=== PATIENT | male | born 1955 | race Caucasian/White ===

== ENCOUNTER → 2019-09-20 | Outpatient (CLI) | payer OTHER ==
[~2019-09-20] MED LIST: ASPIRIN325 PO; ENDOCET 7.5-321 EACH PO; LEVOTHYROXIN0.025 M1 PG; LEVOTHYROXIN0.125 M2 PO; LISINOPRIL-HCT1 EAC1 PO; NORCO 5-325 TA1 EACH PO; NORCO 7.5-3251 EACH PO; SYNTHROID125 MCG PO; ZESTORETIC 20-1 EACH PO; ZESTRIL20 MG PO
== END ==
LOC: CAT 10:04
DX: Z13.6 Encounter for screening for cardiovascular disorders (principal); I25.10 Atherosclerotic heart disease of native coronary artery without angina pectoris; E78.00 Pure hypercholesterolemia, unspecified

== ENCOUNTER 2020-06-08 18:08 | Emergency (ER) | payer OTHER ==
[~2020-06-08] VITALS: Ht 188 cm; Wt 120.2 kg
[2020-06-08 19:20] LABS: ABSOLUTE NEUTROPHILS 4.5 thou/uL (1.4-8.2); HEMATOCRIT 44.6 % (42.0-52.0); HEMOGLOBIN 15.2 gm/dL (14.0-18.0); LYMPHOCYTES 29.5 % (24.0-44.0); MCH 30.9 pg (26.0-34.0); MONOCYTES 8.5 % (1.0-8.0); PLATELET COUNT 255 thou/uL (150-400); RDW 13.2 % (10.5-14.5); WBC 7.7 thou/uL (4.0-11.0)
[2020-06-08 19:30] LABS: ANION GAP 11 mmol/L (7-16); BUN 19 mg/dL (7-18); CALCIUM 8.9 mg/dL (8.5-10.1); CHLORIDE 102 mmol/L (98-107); CO2 27 mmol/L (21-32); CREATININE 1.6 mg/dL (0.7-1.3); GLUCOSE 100 mg/dL (74-106); POTASSIUM 3.9 mmol/L (3.5-5.1); SODIUM 140 mmol/L (136-145)
[2020-06-08] MEDS ORDERED: LISINOPRIL-HCT1 EAC1 PO ×2 (19:36→20:49)
[2020-06-08] MEDS ORDERED: LEVOTHYROXINE125 MCG PO (19:36)
[2020-06-08 19:40] LABS: ALBUMIN 4.1 g/dL (3.4-5.0); SGOT 22 U/L (15-37); SGPT 29 U/L (16-63); TOTAL BILIRUBIN 0.4 mg/dL (0.2-1.0); TOTAL PROTEIN 6.8 g/dL (6.4-8.2); TROPONIN-I <0.06 ng/mL (<0.06)
[2020-06-08 21:04] VITALS: BP 168/99
--- NOTE | 2020-06-11 07:36 | EKG ---
[place] [address] [address] [facility] [place] [address] ELECTROCARDIOGRAM REPORT Name: BRYANT MENSAH [facility] [id number] Admission: 06/08/20 Attend Phys: Discharge: 06/08/20 Date of : 51 Report #: [id number] [facility] ED Test Date: 2020-06-08 Test Time: 18:16:06 Pat Name: BRYANT MENSAH Department: Room: Gender: M Per Di[employer] Interpreter: ANN : 1955 Requested By: Jose Mohamud Order Number: [id number] MD: Praful Aguilera Measurements Intervals [place] Rate: 94 P: 68 UT: 166 QRS: 42 QRSD: 90 T: 39 QT: 346 QTc: 433 Interpretive Statements Sinus rhythm Anterior infarct, old Baseline wander in lead(s) V1 Compared to ECG 06/20/2016 12:17:02 Myocardial infarct finding now present T-wave abnormality no longer present Electronically Signed On 06-11-2020 7:36:23 [employer] by Praful Augilera [email or web address] <ELECTRONICALLY SIGNED> By: Praful Aguilera MD, [facility] 06/11/20 0736 D: 01/1815 15 Praful Aguilera MD, FACC /EPI
== END 2020-06-08 21:05 | disposition home or self-care (01) ==
LOC: ER 18:08
PROVIDERS: Emergency Medicine
DX: I10 Essential (primary) hypertension (principal); E03.9 Hypothyroidism, unspecified; Z90.49 Acquired absence of other specified parts of digestive tract; Z90.89 Acquired absence of other organs; Z79.82 Long term (current) use of aspirin; Z79.899 Other long term (current) drug therapy; Z20.828 Contact with and (suspected) exposure to other viral communicable diseases